=== PATIENT | female | born 1985 | race Caucasian/White ===

== ENCOUNTER → 2017-07-25 | Outpatient (CLI) | payer BC ==
--- NOTE | 2017-07-25 18:43 | RADIOLOGY REPORT (SQ) ---
EXAM DESCRIPTION: KUB/ABDOMEN (SINGLE VIEW) COMPLETED DATE/TIME: 07/25/2017 6:26 pm REASON FOR STUDY: LLQ PAIN, OXYLATE CRYSTALS COMPARISON: None. NUMBER OF VIEWS: One view. TECHNIQUE: Supine radiographic image of the abdomen acquired. LIMITATIONS: None. FINDINGS: BOWEL GAS PATTERN: Normal bowel gas pattern. No dilated loops. CALCIFICATIONS: Intrarenal calculi are seen bilaterally, there are more prominent and more numerous o n the left than the right. No ureteral calculus is seen. SOFT TISSUES: No gross mass or suggestion of organomegaly. HARDWARE: An IUD is present. BONES: No acute fracture. No worrisome bone lesions. OTHER: No other significant finding. IMPRESSION: Bilateral nephrolithiasis with no evidence of a ureteral stone. TECHNICAL DOCUMENTATION: JOB ID: [id number] [employer]- All Rights Reserved Reading location - IP/workstation name: [email or web address]
== END ==
LOC: RAD 17:23
PROVIDERS: ATTEND Nurse Practitioner Primary Care
DX: N20.0 Calculus of kidney (principal); R10.32 Left lower quadrant pain; Z87.442 Personal history of urinary calculi
CPT/HCPCS: 74018